=== PATIENT | male | born 1995 | race Caucasian/White ===

== ENCOUNTER 2021-01-06 03:00 | Emergency (ER) | payer OTHER ==
[~2021-01-06] VITALS: Ht 152.4 cm; Wt 72.1 kg
[2021-01-06 03:00] VITALS: BP 121/56
--- NOTE | 2021-01-06 03:00 | NUR ---
DELLA STEIN TAKEN TO CHAIR B
[2021-01-06] MEDS ORDERED: LIDOCAINE/EPI 1% 1:100000 20 ML VIAL INJ ONE (03:15)
--- NOTE | 2021-01-06 03:30 | NUR ---
JOSE DD AT CHAIR SIDE PERFORMING SUTURE PROCEDURE.
[2021-01-06] MEDS ORDERED: BACITRACIN OINT 500 UNITS/GM PKT TP ONE ×2 (03:38→03:40)
--- NOTE | 2021-01-06 03:50 | NUR ---
PATIENT BIB [facility]. PATIENT EXAMINED BY DR. MENDIETA. PATIENT MEDICALLY CLEARED AND RELEASED IN CUSTODY IN STABLE CONDITION. ORIGINAL PRE-BOOK FORM GIVEN TO OFFICER ELI, #[id number].
== END 2021-01-06 03:50 ==
LOC: MED 03:00
DX: S51.012A Laceration without foreign body of left elbow, initial encounter (principal); F10.129 Alcohol abuse with intoxication, unspecified; Z02.89 Encounter for other administrative examinations; V98.8XXA Other specified transport accidents, initial encounter; Y93.89 Activity, other specified; Y92.89 Other specified places as the place of occurrence of the external cause; Y99.8 Other external cause status
CPT/HCPCS: 12002; 99283; J2001